=== PATIENT | male | born 1970 | race Caucasian/White ===

== ENCOUNTER 2018-02-21 03:33 | Emergency (ER) | payer SELFPAY ==
[2018-02-21 04:38] LABS: Absolute Lymphocytes (CBC) 2.8 K/uL (0.7-4.9); Absolute Monocytes 0.7 K/uL (0.1-1.3); Absolute Neutrophil 6.5 K/uL (1.8-8.0); Basophils % 0.8 % (0-1.3); Eosinophils % 4.5 % (0-4.4); Hematocrit 50.1 % (39.6-49.0); Lymphocytes % 26.1 % (15.3-44.8); MCH 33.2 pg (27.0-35.0); MPV 8.4 fL (7.6-11.3); Monocytes % 6.8 % (3.3-12.3); RBC Red Blood Cell Count 5.16 M/uL (4.33-5.43)
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
[2018-02-21 04:45] LABS: Albumin 3.3 g/dL (3.4-5.0); Bilirubin Total 0.3 mg/dL (0.2-1.0); Protein, Total 7.2 g/dL (6.4-8.2)
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
== END 2018-02-21 06:26 | disposition home or self-care (01) ==
LOC: ER 03:33
DX: M25.562 Pain in left knee (principal); V89.2XXA Person injured in unspecified motor-vehicle accident, traffic, initial encounter; Y92.89 Other specified places as the place of occurrence of the external cause; Y99.8 Other external cause status; Z88.0 Allergy status to penicillin; Z72.0 Tobacco use
CPT/HCPCS: 36415; 70450; 71045; 72125; 80053; 85025; 99285